=== PATIENT | male | born 2005 | race Caucasian/White ===

== ENCOUNTER 2025-04-25 18:06 | Emergency (ER) | payer BC ==
[2025-04-25 18:24] LABS: BASOPHILS ABSOLUTE AUTO 0.07 K/uL (0.00-0.20); BASOPHILS PERCENT AUTO 0.9 % (0.0-1.0); EOSINOPHILS ABSOLUTE AUTO 0.12 K/uL (0.00-0.45); EOSINOPHILS PERCENT AUTO 1.6 % (0.0-6.0); HEMOGLOBIN 14.7 g/dL (14.0-18.0); IMMATURE GRAN ABSOLUTE AUTO 0.03 K/uL (0.00-0.05); IMMATURE GRAN PERCENT AUTO 0.4 % (0.0-0.4); LYMPHOCYTES ABSOLUTE AUTO 1.68 K/uL (1.00-4.80); LYMPHOCYTES PERCENT AUTO 22.4 % (24.0-44.0); MEAN CORPUSCULAR HEMOGLOBIN 30.3 pg (28.0-32.0); MEAN CORPUSCULAR VOLUME 86.6 fL (83.0-99.0); MEAN PLATELET VOLUME 9.1 fL (9.4-12.4); MONOCYTES ABSOLUTE AUTO 0.44 K/uL (0.00-0.80); MONOCYTES PERCENT AUTO 5.9 % (0.0-8.0); NEUTROPHILS ABSOLUTE AUTO 5.17 K/uL (1.80-7.70); NEUTROPHILS PERCENT AUTO 68.8 % (41.0-71.0); PLATELET COUNT,PLT 214 K/uL (150-400); RED BLOOD CELL COUNT 4.85 M/uL (4.52-5.90); WHITE BLOOD CELL COUNT,WBC 7.51 K/uL (3.9-11.3)
[2025-04-25 18:43] LABS: APPEARANCE,URINE CLEAR; BILIRUBIN,URINE NEGATIVE (NEGATIVE); COLOR,URINE YELLOW; GLUCOSE,URINE NEGATIVE (NEGATIVE); KETONES,URINE NEGATIVE (NEGATIVE); LEUKOCYTE ESTERASE,URINE NEGATIVE (NEGATIVE); NITRITE,URINE NEGATIVE (NEGATIVE); OCCULT BLOOD,URINE NEGATIVE (NEGATIVE); PROTEIN,URINE NEGATIVE (NEGATIVE); UROBILINOGEN,URINE 0.2 EU/dL (<2.0)
[2025-04-25 18:45] LABS: A/G RATIO 1.4 (0.9-1.6); ALBUMIN 4.3 g/dL (3.4-5.0); BILIRUBIN TOTAL 0.6 mg/dL (0.2-1.0); CALCIUM 8.9 mg/dL (8.5-10.1); CARBON DIOXIDE,CO2 30.2 mmol/L (21.0-32.0); CREATININE 1.1 mg/dL (0.8-1.3); EST CRCL DRUG DOSING (CG) 109.68 mL/min; MAGNESIUM 2.1 mg/dL (1.8-2.4); POTASSIUM,K 3.7 mmol/L (3.5-5.1); PROTEIN TOTAL,TP 7.4 g/dL (6.4-8.2)
[2025-04-25] MEDS: Metoclopramide 5 MG Tab PO ONE (20:44)
[2025-04-25] MEDS: Ketorolac 30 MG/ML SDV IVPUSH ONE (21:28)
[2025-04-25] MEDS: Sodium Chloride 0.9% 1,000 ML IV ONE (21:28)
[2025-04-25] MEDS: Iopamidol 755 MG/ML 500 ML Multipack Bottle IVPUSH ONE (21:53)
== END 2025-04-25 23:17 | disposition home or self-care (01) ==
LOC: MW.ED 18:06
DX: R10.32 Left lower quadrant pain (principal); R11.2 Nausea with vomiting, unspecified; Z75.3 Unavailability and inaccessibility of health-care facilities; Z79.899 Other long term (current) drug therapy
CPT/HCPCS: 36415; 74018; 74018-26; 74177; 74177-26; 80053; 81003; 83690; 83735; 85025; 93005; 96361; 96374; 99283; 99284-25; A9270-GY; J1885; J7030; Q9967

== ENCOUNTER 2025-04-30 18:11 | Emergency (ER) | payer BC | END 2025-04-30 19:24 | disposition home or self-care (01) | LOC: MW.ED 18:11 | DX: R19.7 Diarrhea, unspecified (principal); Z75.3 Unavailability and inaccessibility of health-care facilities | CPT/HCPCS: 99282; 99283 ==